=== PATIENT | female | born 1975 | race American Indian/Alaskan Native ===

== ENCOUNTER 2019-02-04 04:25 | Emergency (ER) | payer SELFPAY ==
[2019-02-04 04:42] VITALS: RESP 20
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
[2019-02-04 06:31] VITALS: BP 110/74; PULSE 72; TEMP 98; O2SAT 98
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
== END 2019-02-04 06:46 | disposition home or self-care (01) ==
LOC: C.ER 04:25
DX: S00.83XA Contusion of other part of head, initial encounter (principal); Y04.0XXA Assault by unarmed brawl or fight, initial encounter; M79.7 Fibromyalgia